=== PATIENT | female | born 1975 | race Caucasian/White ===

== ENCOUNTER 2017-02-15 22:05 | Emergency (ER) | payer OTHER ==
[~2017-02-15] VITALS: Ht 162.6 cm; Wt 64.6 kg
[2017-02-15 23:45] LABS: BASOPHIL % 0.3 % (0-2); PLATELET COUNT 348 x10^3mcL (130-400)
[2017-02-15 23:49] LABS: RED CELL DISTRIBUTION WIDTH 15.7 % (11.5-14.5)
[2017-02-15 23:50] LABS: CALCIUM 8.6 mg/dL (8.5-10.1); CARBON DIOXIDE 24.4 mmol/L (21-32); CHLORIDE SERUM 105 mmol/L (98-107); CREATININE SERUM 0.7 mg/dL (0.6-1.0); GFR1 > 60 mL/min; GLUCOSE SERUM 101 mg/dL (74-106); POTASSIUM SERUM 3.9 mmol/L (3.5-5.1); SODIUM SERUM 136 mmol/L (136-145)
[2017-02-15 23:53] LABS: microscopic required? YES
[2017-02-15 23:54] LABS: urine erythrocyte 1+ (NEGATIVE)
[2017-02-15 23:55] LABS: ALKALINE PHOSPHATASE 79 U/L (46-116); ALT/SGPT 24 U/L (14-59); AMYLASE 63 U/L (25-115); AST/SGOT 24 U/L (15-37); BILIRUBIN TOTAL 0.1 mg/dL (0.20-1.00); LIPASE 186 IU/L (73-393); TOTAL PROTEIN, SERUM 7.2 g/dL (6.4-8.2)
[2017-02-16 01:55] VITALS: BP 122/87
== END 2017-02-16 01:55 | disposition home or self-care (01) ==
LOC: ED 22:05
PROVIDERS: Emergency Medicine
DX: N12 Tubulo-interstitial nephritis, not specified as acute or chronic (principal); Z98.890 Other specified postprocedural states
CPT/HCPCS: J1170; J1885; J1956; J2405; J2765

== ENCOUNTER 2017-11-21 19:42 | Emergency (ER) | payer OTHER ==
[~2017-11-21] VITALS: Ht 162.6 cm; Wt 67.6 kg
[2017-11-21 19:46] VITALS: Ht 162.6 cm; Wt 67.6 kg
[2017-11-21 20:15] VITALS: BP 139/97
== END 2017-11-21 20:15 | disposition home or self-care (01) ==
LOC: ED 19:42
DX: N39.0 Urinary tract infection, site not specified (principal)